=== PATIENT | female | born 1990 | race Caucasian/White ===

== ENCOUNTER 2017-03-13 17:45 | Emergency (ER) | payer MEDICAID, OTHER ==
[~2017-03-13] VITALS: Wt 39.0 kg
[~2017-03-13 17:45] MED LIST: IBUP800T25 PO
[2017-03-13] MEDS ORDERED: PRED20TA PO (19:54)
--- NOTE | 2017-03-13 19:57 | ERD ---
ER Documentation Chief Complaint Date/Time DATE: 03/13/17 TIME: 19:55 Chief Complaint HEADACHE, LUMPS ON NECK, BELOW LEFT EAR HPI This 26-year-old female presents with a approximately 3-4 day history of some lumps are painful in her neck and behind her ear. She denies any fevers, sore throat, vomiting, urinary complaints, rashes or skin lesions. She possibly has a mild cough but is in the morning and attributes to her asthma ROS All systems reviewed and are negative except as per history of present illness. Medications Home Meds Active Scripts Prednisone* (Prednisone*) 20 Mg Tab, 40 MG PO DAILY for 4 Days, TAB Prov:BETHANY RM MD 03/13/17 Ibuprofen* (Motrin*) 800 Mg Tab, 800 MG PO Q6H Y for PAIN AND OR ELEVATED TEMP, #30 TAB Prov:LESLIE PEARSON NP 05/06/16 Allergies Allergies: Coded Allergies: No Known Allergy (Unverified , 10/26/12) PMhx/Soc History of Surgery: Yes ( x1) Anesthesia Reaction: No Hx Respiratory Disorders: Yes (asthma) Hx Cardiac Disorders: No Hx Psychiatric Problems: No Hx Miscellaneous Medical Probl: No Hx Alcohol Use: No Hx Substance Use: No Hx Tobacco Use: No Smoking Status: Never smoker Physical Exam Vitals Vital Signs Date Time Temp Pulse Resp B/P Pulse Ox O2 Delivery O2 Flow Rate FiO2 03/13/17 17:51 98.0 72 17 123/76 98 Physical Exam Const: [] Alert, pleasant, not ill-appearing per Head: Atraumatic Eyes: Normal Conjunctiva ENT: Normal External Ears, Nose and Mouth. It is Michelle shotty lymphadenitis in the preauricular area occipital area the left anterior cervical area. There is no skin lesions or other abnormalities appreciated. Neck: Full range of motion..~ No meningismus. Resp: Clear to auscultation bilaterally Cardio: Regular rate and rhythm, no murmurs Abd: Soft, non tender, non distended. Normal bowel sounds Skin: No petechiae or rashes Back: No midline or flank tenderness Ext: No cyanosis, or edema Neur: Awake and alert Psych: Normal Mood and Affect Procedures/MDM This patient presents with a few day history of what appears to be reactive lymphadenitis. Suspect she has a unspecified viral illness. She will be treated with ibuprofen and a short course of prednisone. Patient is advised to recheck for persistent symptoms and to 3 weeks to evaluate for additional abnormalities but current testing unlikely to be fruitful given the patient's well appearance and no other complaints. She should otherwise return to the ER for any worsening symptoms otherwise recommend allow viral illness to resolve and recheck for persistent symptoms despite adequate time. My adult discCHARGE Departure Diagnosis: Primary Impression: Lymphadenitis Condition: Stable Patient Instructions: Lymphangitis Additional Instructions: Swollen lymph nodes likely reacting to viral illness or some other stimulus. Recommend allow viral illness to resolve or recheck to 3 weeks for persistent symptoms or for new or worsening symptoms. Take 400 mg ibuprofen every 6 hours for pain. See primary doctor for follow-up BETHANY RM MD Mar 13, 2017 19:57
== END 2017-03-13 20:27 | disposition home or self-care (01) ==
LOC: FTE 17:45
DX: I88.9 Nonspecific lymphadenitis, unspecified (principal); J45.909 Unspecified asthma, uncomplicated
CPT/HCPCS: 99283